=== PATIENT | female | born 1930 | race Hispanic/Latino ===

== ENCOUNTER 2017-11-12 07:55 | Day surgery (SDC) | payer MEDICARE ==
[2017-11-11 09:29] LABS: BASOPHILS % (AUTO) 0.4 % (0.0-5.0); EOSINOPHILS % (AUTO) 1.7 % (0.0-8.0); HEMATOCRIT 37.3 % (36-48); LYMPHOCYTES % (AUTO) 20.4 % (21.0-51.0); MEAN CORPUSCULAR HEMOGLOBIN 32.1 pg (27.0-33.0); MEAN CORPUSCULAR HGB CONC 33.5 g/dL (32.0-36.0); MEAN CORPUSCULAR VOLUME 95.7 fL (79-99); MONOCYTES % (AUTO) 12.5 % (3.0-13.0); NUCLEATED RED BLOOD CELLS 0.2 % (0.0-0.19); PLATELET COUNT (AUTO) 132 K/uL (130-400); RED BLOOD CELL COUNT(AUTO) 3.89 MIL/uL (4.00-5.50); RED CELL DISTRIBUTION WIDTH 14.8 % (11.0-15.5); WHITE BLOOD COUNT (AUTO) 5.4 K/uL (4.8-10.8)
[2017-11-11 09:35] LABS: CREATININE 1.1 mg/dL (0.5-1.5); POTASSIUM 3.9 mmol/L (3.5-5.1)
[2017-11-11 09:36] VITALS: BP 155/72
[2017-11-11 09:48] LABS: INR 1.13 (0.85-1.15); PARTIAL THROMBOPLASTIN TIME 39.5 SEC (26.3-35.5); PROTHROMBIN TIME 11.8 SEC (9.6-11.6)
[~2017-11-12] VITALS: Ht 154.9 cm; Wt 51.6 kg
[2017-11-12] VITALS (20 sets, daily range): BP systolic 67–137; BP diastolic 38–77
[~2017-11-12 07:55] MED LIST: ATOR10TA69 PO; BRIM15OS OU; CARB200T PO; CARV3.12 PO; DORZ10DR10 OU; DRON400T2 PO; FERS325 PO; FURO20TA4 PO; GABA-531 PO; HYDR-4068 PO; LATA7.5D OU; MECL12.585 PO; MEMA28CA PO; RIVA15TA PO; VALS40TA11 PO
[2017-11-12] MEDS ORDERED: SODIUM CHLORIDE 0.9% 1000ML 1,000 ML IV ONE (08:56)
[2017-11-12] MEDS ORDERED: PROPOFOL 10 MG/ML 20ML VIAL IV ONE (09:58)
[2017-11-12] MEDS ORDERED: SODIUM CHLORIDE 0.9% 10 ML VIAL ONE (11:00)
[2017-11-12] MEDS ORDERED: PHENYLEPHRINE HCL 10 MG/ML 1ML VIAL IV ONE (11:00)
== END 2017-11-12 13:00 | disposition home or self-care (01) ==
LOC: DAH 07:55
PROVIDERS: ATTEND Internal Medicine Cardiovascular Disease
DX: I48.4 Atypical atrial flutter (principal); I49.5 Sick sinus syndrome; I50.22 Chronic systolic (congestive) heart failure; Z95.1 Presence of aortocoronary bypass graft; Z95.0 Presence of cardiac pacemaker; I25.10 Atherosclerotic heart disease of native coronary artery without angina pectoris
CPT/HCPCS: 36415; 80048; 85025; 85610; 85730; 92960; 93005; A4606; J2370; J2704; J7030; 99156; 99157

== ENCOUNTER 2021-01-08 07:17 | Day surgery (SDC) | payer MEDICARE ==
[2021-01-03 14:51] LABS: BASOPHILS % (AUTO) 0.6 % (0.0-5.0); EOSINOPHILS % (AUTO) 4.3 % (0.0-8.0); HEMATOCRIT 39.3 % (36-48); LYMPHOCYTES % (AUTO) 14.8 % (21.0-51.0); MEAN CORPUSCULAR HEMOGLOBIN 31.7 pg (27.0-33.0); MEAN CORPUSCULAR HGB CONC 31.8 g/dL (32.0-36.0); MEAN CORPUSCULAR VOLUME 99.7 fL (79-99); MONOCYTES % (AUTO) 12.3 % (3.0-13.0); NEUTROPHILS % (AUTO) 67.4 % (40.0-77.0); PLATELET COUNT (AUTO) 206 K/uL (130-400); RED BLOOD CELL COUNT(AUTO) 3.94 MIL/uL (4.00-5.50); RED CELL DISTRIBUTION WIDTH 14.5 % (11.0-15.5); WHITE BLOOD COUNT (AUTO) 6.8 K/uL (4.8-10.8)
[2021-01-03 14:58] LABS: CREATININE 1.3 mg/dL (0.5-1.5); POTASSIUM 4.5 mmol/L (3.5-5.1)
[2021-01-03 15:02] LABS: INR 2.7 (0.85-1.15); PROTHROMBIN TIME 26.9 SEC (9.6-11.6)
[2021-01-03 15:07] VITALS: BP 140/76
[2021-01-08] VITALS (9 sets, daily range): BP systolic 102–148; BP diastolic 57–73
[~2021-01-08] VITALS: Ht 157.5 cm; Wt 46.5 kg
[~2021-01-08 07:17] MED LIST changes: +0.9% NACL 500ML IV.SOLN 500 ML IV SCH; -ATOR10TA69 PO; -BRIM15OS OU; -CARB200T PO; -CARV3.12 PO; -DORZ10DR10 OU; -DRON400T2 PO; +DRON400T7 PO; -FERS325 PO; -GABA-531 PO; +GABA600T10 PO; -HYDR-4068 PO; -LATA7.5D OU; -MECL12.585 PO; +PHOSPHORUS PO; +POTA-79 PO; -VALS40TA11 PO; +VITAD50000 PO
[2021-01-08] MEDS ORDERED: 0.9%NACL 1000ML 1,000 ML IV ONE (07:23)
[2021-01-08] MEDS ORDERED: PROPOFOL 10 MG/ML 20ML VIAL IV ONE (09:20)
== END 2021-01-08 10:10 | disposition home or self-care (01) ==
LOC: DAH 07:17
PROVIDERS: ATTEND Internal Medicine Cardiovascular Disease
DX: I48.4 Atypical atrial flutter (principal); Z20.822 Contact with and (suspected) exposure to COVID-19; I48.0 Paroxysmal atrial fibrillation; I49.5 Sick sinus syndrome; I50.22 Chronic systolic (congestive) heart failure; I25.10 Atherosclerotic heart disease of native coronary artery without angina pectoris; E78.5 Hyperlipidemia, unspecified; Z95.1 Presence of aortocoronary bypass graft; F03.90 Unspecified dementia, unspecified severity, without behavioral disturbance, psychotic disturbance, mood disturbance, and anxiety; Z95.0 Presence of cardiac pacemaker; Z79.01 Long term (current) use of anticoagulants
CPT/HCPCS: 36415; 80048; 85025; 85610; 85730; 87635; 92960; 93005 ×2; A4215; A4216; A4221; A4222; A4223 ×3; A4606; A4663; C9803; J2704; J7030; 99156